=== PATIENT | male | born 1970 | race Caucasian/White ===

== ENCOUNTER 2018-12-04 10:35 | Day surgery (SDC) | payer OTHER ==
[~2018-12-04] VITALS: Ht 188 cm; Wt 121.0 kg
[2018-12-04] MEDS: DOCUSATE 100 MG CAPSULE PO SCH ×2 (09:00→20:39)
[~2018-12-04 10:35] MED LIST: ACETAMINOPHEN 650 MG/20.3 ML UDC PO PRN; ASCO250T2 PO; BISACODYL 10 MG SUPP PR PRN; CALC1CAP8 PO; CLOB15CR19 TP; DEXAMETHASONE 4 MG/ML, 1ML IVPush ONE; DIPHENHYDRAMINE 25 MG CAPSULE PO PRN; EPINEPHRINE 1 MG/ML, 1ML ONE; FOLI0.8T2 PO; HYDROcodone/APAP 5/325 TABLET PO PRN; HYDROmorphone 1 MG/ML, 1ML INJ IV PRN; KETOROLAC 60 MG/2 ML ONE; MAGNESIUM HYDROXIDE 8%, 30ML UDC PO PRN; METH2.5T PO; ONDANSETRON 2MG/ML, 2ML IV PRN; ONDANSETRON 4 MG TABLET PO PRN; ROPIvacaine/PF 0.5%, 20 ML ONE; SCOPOLAMINE PATCH, 1.5MG PATCH.TD72 TD ONE; SENNA/DOCUSATE TABLET PO PRN; SODIUM CHLORIDE 0.9% 50 ML ONE; TRAM50TA2 PO; TRANEXAMIC ACID 100 MG/ML, 10ML ONE; VANCOMYCIN 1,000 MG ONE; VANCOMYCIN PMX 1GM/200ML 200 ML IV ONE; ZOLPIDEM 5MG TABLET PO PRN
[2018-12-04] MEDS ORDERED: GLYCOPYRROLATE 0.2MG/1ML, 5ML ONE (10:58)
[2018-12-04 11:02] VITALS: BP 150/88
[2018-12-04] MEDS ORDERED: LACTATED RINGERS 1,000 ML IV SCH (11:05)
[2018-12-04] MEDS ORDERED: ACETAMINOPHEN 500 MG TABLET PO ONE (11:30)
[2018-12-04] MEDS ORDERED: GABAPENTIN 300 MG CAPSULE PO ONE (11:30)
[2018-12-04] MEDS ORDERED: PROPOFOL 10 MG/ML, 20ML ONE (12:05)
[2018-12-04] MEDS ORDERED: FENTANYL PF 250 MCG/5ML ONE (12:05)
[2018-12-04] MEDS ORDERED: MIDAZOLAM 1 MG/ML, 2ML ONE (12:05)
[2018-12-04] MEDS ORDERED: CEFAZOLIN 1,000 MG ONE ×2 (12:05)
[2018-12-04] MEDS ORDERED: ONDANSETRON 2MG/ML, 2ML ONE (12:06)
[2018-12-04] MEDS ORDERED: DEXAMETHASONE 4 MG/ML, 1ML ONE ×2 (12:06)
[2018-12-04] MEDS ORDERED: HYDROmorphone 2 MG/ML, 1ML IVPush PRN (13:00)
[2018-12-04] MEDS ORDERED: LORazepam 2 MG/ML, 1ML IVPush PRN (13:00)
[2018-12-04] MEDS ORDERED: OXYcodone 5 MG/5 ML ORAL.SOL UDC PO PRN (13:00)
[2018-12-04] MEDS ORDERED: ONDANSETRON 2MG/ML, 2ML IV PRN (13:00)
[2018-12-04] MEDS ORDERED: METOCLOPRAMIDE 5 MG/ML, 2ML IV PRN (13:00)
[2018-12-04] MEDS ORDERED: LABETALOL 5MG/ML, 20ML IV PRN (13:00)
[2018-12-04] MEDS ORDERED: hydrALAzine 20 MG/ML, 1ML IV PRN (13:00)
[2018-12-04] MEDS ORDERED: MEPERIDINE/PF 25MG/ML,1ML IVPush PRN (13:00)
[2018-12-04] MEDS ORDERED: FENTANYL PF 100 MCG/2ML ONE ×2 (14:42→15:07)
[2018-12-04] MEDS ORDERED: MEPERIDINE/PF 25MG/ML,1ML ONE (14:43)
[2018-12-04] MEDS: FENTANYL PF 100 MCG/2ML IV PRN ×3 (14:45→15:11)
[2018-12-04] MEDS ORDERED: OXYcodone 5 MG/5 ML ORAL.SOL UDC ONE (15:07)
[2018-12-04 16:05] VITALS: BP 133/80
[2018-12-04] MEDS: ASPIRIN 81 MG TABLET EC PO SCH (17:34)
[2018-12-04] MEDS: NS + 20MEQ KCL 1,000 ML IV SCH (18:17)
[2018-12-04] MEDS ORDERED: VANCOMYCIN PMX 1GM/200ML 200 ML IV ONE (19:00)
[2018-12-04 20:08] VITALS: BP 158/87
[2018-12-04] MEDS: CEFAZOLIN PMX 2GM/50ML 50 ML IVPB SCH (20:39)
[2018-12-04] MEDS: OXYcodone IR 5MG TABLET PO PRN (20:39)
[2018-12-05 01:20] VITALS: BP 129/67
[2018-12-05] MEDS: OXYcodone IR 5MG TABLET PO PRN ×3 (01:26→09:38)
[2018-12-05] MEDS: CEFAZOLIN PMX 2GM/50ML 50 ML IVPB SCH (04:49)
[2018-12-05] MEDS: ASPIRIN 81 MG TABLET EC PO SCH (05:33)
[2018-12-05] MEDS ORDERED: DEXAMETHASONE 4 MG/ML, 1ML IVPush ONE (06:00)
[2018-12-05] MEDS: NS + 20MEQ KCL 1,000 ML IV SCH (07:00)
[2018-12-05] MEDS: DOCUSATE 100 MG CAPSULE PO SCH (08:12)
[2018-12-05 09:00] VITALS: BP 130/69
[2018-12-05] MEDS ORDERED: FOLIC ACID 1 MG TABLET PO SCH (09:00)
[2018-12-05] MEDS ORDERED: MELO7.5T31 PO (09:11)
[2018-12-05] MEDS ORDERED: TRAM50TA2 PO (09:19)
[2018-12-05] MEDS ORDERED: OXYC5TAB3 PO (09:21)
== END 2018-12-05 11:50 | disposition home or self-care (01) ==
LOC: OUT 10:35 → UNDOADMIN 15:19 → OUT 15:19 → ORIP 15:19 → 4NE 16:10 → DCLOUNGE 12-05 11:33 → UNDODISIN 12-05 11:43 → OUT 12-05 11:50
PROVIDERS: ATTEND Orthopaedic Surgery
DX: M17.11 Unilateral primary osteoarthritis, right knee (principal); M25.761 Osteophyte, right knee; Z72.89 Other problems related to lifestyle; Z91.040 Latex allergy status; Z98.890 Other specified postprocedural states
CPT/HCPCS: 27447; 36415; 64447; 85014; 85018; 97110; 97161; 97165; C1713; C1776; J0171; J0690; J1100; J1885; J2175; J2250; J2405; J2704; J2795; J3010; J3370; J3480; J7120; G0378

== ENCOUNTER 2019-09-10 18:51 | Emergency (ER) | payer OTHER ==
[~2019-09-10] VITALS: Ht 188 cm; Wt 126.0 kg
[~2019-09-10 18:51] MED LIST changes: -ACETAMINOPHEN 650 MG/20.3 ML UDC PO PRN; -BISACODYL 10 MG SUPP PR PRN; -DEXAMETHASONE 4 MG/ML, 1ML IVPush ONE; -DIPHENHYDRAMINE 25 MG CAPSULE PO PRN; -EPINEPHRINE 1 MG/ML, 1ML ONE; -HYDROcodone/APAP 5/325 TABLET PO PRN; -HYDROmorphone 1 MG/ML, 1ML INJ IV PRN; -KETOROLAC 60 MG/2 ML ONE; -MAGNESIUM HYDROXIDE 8%, 30ML UDC PO PRN; +MELO7.5T31 PO; -ONDANSETRON 2MG/ML, 2ML IV PRN; -ONDANSETRON 4 MG TABLET PO PRN; +OXYC5TAB3 PO; -ROPIvacaine/PF 0.5%, 20 ML ONE; -SCOPOLAMINE PATCH, 1.5MG PATCH.TD72 TD ONE; -SENNA/DOCUSATE TABLET PO PRN; -SODIUM CHLORIDE 0.9% 50 ML ONE; -TRANEXAMIC ACID 100 MG/ML, 10ML ONE; -VANCOMYCIN 1,000 MG ONE; -VANCOMYCIN PMX 1GM/200ML 200 ML IV ONE; -ZOLPIDEM 5MG TABLET PO PRN
[2019-09-10 18:57] VITALS: BP 153/96
[2019-09-10] MEDS ORDERED: HYDROcodone/APAP 5/325 TABLET PO ONE (19:30)
[2019-09-10] MEDS ORDERED: CYCLOBENZAPRINE 10 MG TABLET PO ONE (19:30)
[2019-09-10] MEDS ORDERED: KETOROLAC 30 MG/1 ML IM ONE (19:30)
[2019-09-10] MEDS ORDERED: HYDROcodone/APAP 5/325 TABLET ONE (20:29)
[2019-09-10] MEDS ORDERED: KETOROLAC 30 MG/1 ML ONE (20:29)
[2019-09-10] MEDS ORDERED: CYCLOBENZAPRINE 10 MG TABLET ONE (20:30)
[2019-09-10] MEDS ORDERED: HYDROmorphone 1 MG/ML, 1ML INJ ONE (21:09)
[2019-09-10] MEDS ORDERED: HYDROmorphone 1 MG/ML, 1ML INJ IM ONE (21:30)
== END 2019-09-10 21:44 | disposition home or self-care (01) ==
LOC: ED 21:25
DX: M54.12 Radiculopathy, cervical region (principal); M54.9 Dorsalgia, unspecified; M25.511 Pain in right shoulder
CPT/HCPCS: 96372; 99284; J1170; J1885